=== PATIENT | male | born 1985 | race Two or more races ===

== ENCOUNTER → 2024-08-29 | Outpatient (CLI) | payer MEDICAID ==
--- NOTE | 2024-09-04 16:37 | DVHNC2 ---
Procedure - No obstructive or restrictive ventilatory defect. No significant post-bronchodilator improvement. Noted 60 mL improvement on FVC. Normal total lung capacity (6.27 L, 104%). Normal DLCO (95%), not correlated with patient's hemoglobin. INDIRA BAKER MD Sep 04, 2024 16:37
== END | disposition home or self-care (01) ==
LOC: RT 10:33
PROVIDERS: ATTEND Internal Medicine Pulmonary Disease
DX: R06.00 Dyspnea, unspecified (principal); F17.210 Nicotine dependence, cigarettes, uncomplicated
CPT/HCPCS: 94060; 94727; 94729

== ENCOUNTER 2024-12-19 08:07 | Inpatient (IN) | payer MEDICAID ==
[2024-12-18 10:26] LABS: Urine Bacteria None Seen /hpf (None Seen)
[2024-12-18 10:46] LABS: Basophils # (auto) 0 10 ^3/uL (0-0.2); Basophils % (auto) 0.5 % (0.0-2.0); Eosinophils # (auto) 0 10 ^3/uL (0-0.8); Eosinophils % (auto) 0.6 % (0.0-7.0); Hematocrit 42.4 % (41.0-53.0); Hemoglobin 14.2 g/dL (13.5-17.5); Lymphocytes # (auto) 1.9 10 ^3/uL (0.4-5.4); Lymphocytes % (auto) 25.3 % (10.0-50.0); Mean Corpuscular Hemoglobin 30.6 pg (28.0-32.0); Mean Corpuscular Hgb Conc. 33.5 g/dL (32.0-36.0); Mean Corpuscular Volume 91.5 fL (80.0-100.0); Monocytes # (auto) 0.5 10 ^3/uL (0-1.3); Neutrophils # (auto) 5.1 10 ^3/uL (1.6-8.6); Neutrophils % (auto) 67.6 % (37.0-80.0); Platelet Count (auto) 361 10^3/uL (140-450); Red Blood Cells 4.64 10^6/uL (4.5-5.90); Red Cell Distribution Width 14.7 % (11.8-14.3); White Blood Cell 7.6 10^3/uL (4.4-10.8)
[2024-12-18 10:50] LABS: Urine Blood TRACE /uL (Negative); Urine Clarity Clear (Clear); Urine Color Yellow (Yellow); Urine Protein, UAD TRACE (Negative); Urine Specific Gravity 1.023 (1.001-1.035); Urine Squamous Epithelial Cell FEW /hpf (<5); Urine Urobilinogen Normal (Negative); Urine WBC 1 /HPF (0-3)
[2024-12-18 10:55] LABS: INR 1.05 (0.9-1.15); Partial Thromboplastin Time 28.4 SEC (24.5-34.5); Prothrombin Time 11.1 sec (9.3-11.8)
[2024-12-18 11:53] LABS: Alanine Aminotransferase 34 U/L (7-40); Aspartate Aminotransferase 22 U/L (13-40); BUN/Creatinine Ratio 7.9 (10.0-20.0); Blood Urea Nitrogen 10 mg/dL (9-23); Carbon Dioxide 28 mmol/L (20-31); Glucose 86 mg/dL (74-106); Potassium 3.8 mmol/L (3.5-5.1); Sodium 141 mmol/L (136-145); Total Protein 7.8 g/dL (5.7-8.2)
[2024-12-18 11:59] LABS: Albumin 5.3 g/dL (3.2-4.8); Alkaline Phosphatase 118 U/L (46-116); Calcium 10.5 mg/dL (8.7-10.4)
[2024-12-18 12:05] LABS: Anion Gap 7 (5-15); Chloride 106 mmol/L (98-107)
[2024-12-18 12:13] LABS: Bilirubin, Total 0.9 mg/dL (0.2-1.0)
[~2024-12-19] VITALS: Ht 167.6 cm; Wt 75.7 kg
[~2024-12-19 08:07] MED LIST: CHOL20007 PO; GABA300T4 PO; IBUP200C3 PO; PANT40TA2 PO; PERCOT PO; RIME75TA PO
[2024-12-19] MEDS: ceFAZolin 2 GM/D5W100ml 100 ML IV ONE (08:18)
[2024-12-19] MEDS ORDERED: ONDANSETRON HCL 4 MG/2 ML VIAL ONE (08:33)
[2024-12-19] MEDS ORDERED: GLYCOPYRROLATE 0.2 MG/ML 1ML VIAL ONE (08:33)
[2024-12-19] MEDS ORDERED: KETOROLAC TROMETH 30 MG/ML 1ML VIAL ONE (08:33)
[2024-12-19] MEDS ORDERED: SUGAMMADEX 200mg/2ml Vial (100MG/ML) IV ONE (08:33)
[2024-12-19] MEDS ORDERED: PROPOFOL 10 MG/ML 20 ML IV ONE (08:33)
[2024-12-19] MEDS ORDERED: LIDOCAINE 2% (LOCAL ANESTH.) PF 5ml SDV ONE (08:33)
[2024-12-19] MEDS ORDERED: ROCURONIUM 10MG/ML 10ML VIAL IV ONE (08:33)
[2024-12-19] MEDS ORDERED: fentaNYL CITRATE 100 MCG/2 ML VL ONE (08:34)
[2024-12-19] MEDS: ACETAMINOPHEN IV 1000 MG/100ML (10MG/ML) IV ONE (09:15)
[2024-12-19] MEDS: CELECOXIB 100 MG CAP PO ONE (09:15)
[2024-12-19] MEDS: GABAPENTIN 300 MG CAP PO ONE (09:15)
[2024-12-19] MEDS: CELECOXIB 100 MG CAP ONE (09:25)
[2024-12-19] MEDS: GABAPENTIN 300 MG CAP ONE (09:25)
[2024-12-19] MEDS: ACETAMINOPHEN IV 100 ML IV ONE (09:25)
[2024-12-19] MEDS ORDERED: ESMOLOL HCL 10 ML IV ONE (09:53)
[2024-12-19] MEDS: BUPIVACAINE 0.25% INJ 50ML VIAL ONE (10:16)
[2024-12-19] MEDS: LIDOCAINE W/ EPINEPHRINE 1% 20ML VIAL ONE (10:19)
[2024-12-19] MEDS ORDERED: KETAMINE 50mg/ML 1ml syringe IV ONE (10:33)
[2024-12-19 10:36] VITALS: O2SAT 100
[2024-12-19] MEDS ORDERED: ONDANSETRON HCL 4 MG/2 ML VIAL IV PRN (10:45)
[2024-12-19] MEDS ORDERED: ePHEDrine SULFATE 50 MG/ML AMP IV PRN (10:45)
[2024-12-19] MEDS ORDERED: hydrALAZINE HCL 20 MG/ML VL IV PRN (10:45)
[2024-12-19] MEDS ORDERED: fentaNYL CITRATE 100 MCG/2 ML VL IV PRN (10:45)
[2024-12-19] MEDS ORDERED: FLUMAZENIL 0.1 MG/ML INJ 10ML MDV IV PRN (10:45)
[2024-12-19] MEDS ORDERED: NALOXONE HCL 0.4 MG/ML VIAL IV PRN (10:45)
[2024-12-19] MEDS: HYDROmorphone HCL 2 MG/ML VL/or syr IV PRN (10:51)
--- NOTE | 2024-12-19 10:57 | DVHOP ---
DATE OF SURGERY: 12/19/2024 PREOPERATIVE DIAGNOSES: * Cholelithiasis. * Chronic cholecystitis. SURGEON: Humberto Vera MD [employer]PER[employer]: Homero Suarez NP ANESTHESIA: General endotracheal, [place]. PROCEDURES: * Laparoscopy. * Laparoscopic cholecystectomy. DESCRIPTION OF PROCEDURE: Under general endotracheal anesthesia with the patient's skin prepped and draped, a supraumbilical incision was made and Veress needle inserted into the peritoneal cavity by the hanging drop technique in order to establish pneumoperitoneum to 15 mmHg pressure by insufflation with carbon dioxide. With the abdomen fully distended, the needle was removed and replaced with a 5 mm trocar port through which a 0-degree viewing laparoscope was inserted and laparoscopy was performed. The patient's periumbilical abdominal cavity was full of adhesions which were lysed sharply and bluntly after a 10 mm and 5 mm ports were inserted through the subxiphoid skin in the right anterior axillary line at the level of the umbilicus respectively. With instrumentation introduced, the gallbladder was then visualized and was placed on tension. The cystic duct and cystic artery were identified, were quite tortuous and completely covered with adhesions. The adhesions were lysed and the cystic duct and cystic artery skeletonized and traced into the hepatocystic triangle so as to minimize inadvertent injury to the common bile duct. The cystic duct and cystic artery were then divided between metallic clips and the gallbladder which was almost entirely intrahepatic was resected from its liver bed. The mobilized gallbladder was removed from the peritoneal cavity by placement in a specimen extraction bag which was then retrieved through the subxiphoid 10 mm port site. The right upper quadrant was irrigated, irrigant was aspirated. Due to the intrahepatic nature of the gallbladder, a 10 mm Andrade-Chandler drain was inserted into the abdomen and left underneath the right lobe of the liver and exteriorized through the 5 mm trocar port site and secured with a 2-0 nylon suture. Following further assurance of complete hemostasis and irrigation of the right upper quadrant, the irrigant was aspirated. Hemostasis was found to be complete and the instrumentation withdrawn. Pneumoperitoneum was evacuated. Fascial defect closed using 0 Vicryl. Skin and subcutaneous tissues approximated using Monocryl sutures, Dermabond glue, and Steri-Strips. The patient remained stable throughout the procedure and left the operating room following an accurate needle and sponge count. No family members were in the waiting room and no family members answered the phone number given. MD NI Florez/ERNESTO TID: [id number] RECEIPT: [id number]
[2024-12-19] MEDS: oxyCODONE HCL 5MG TAB PO PRN (11:05)
[2024-12-19] MEDS ORDERED: NITROGLYCERIN 0.4 MG SL TAB SL PRN (11:45)
[2024-12-19] MEDS ORDERED: MORPHINE SULFATE INJ 2 MG/ml SYRG IV PRN (11:45)
[2024-12-19] MEDS: diphenhdrAMINE HCL 50 MG/1 ML VL ONE (11:52)
[2024-12-19] MEDS: diphenhdrAMINE HCL 50 MG/1 ML VL IV ONE (11:53)
--- NOTE | 2024-12-19 13:33 | DVHHP2 ---
Review of Systems Allergies: Coded Allergies: NO KNOWN ALLERGIES (Unverified , 12/18/24) Medications Current Medications Medications Dose Ordered Sig/Giovanni Route Start Time Stop Time Status Last Admin Dose Admin Potassium Chloride/Dextrose/ Sod Cl 1,000 ml @ 120 mls/hr Q8H20M IV 12/19/24 10:45 Cefazolin Sodium/ Dextrose 50 ml @ 50 mls/hr Q8HR IV 12/19/24 14:00 Morphine Sulfate 2 mg Q3HPRN PRN IV 12/19/24 10:45 Acetaminophen/ Codeine Phosphate 1 tab Q4HP PRN PO 12/19/24 10:45 Cefazolin Sodium/ Dextrose 50 ml @ 50 mls/hr Q8HR IV 12/19/24 14:00 UNV Oxycodone HCl 10 mg ONCE PRN PO 12/19/24 10:45 12/19/24 11:05 10 MG Nitroglycerin 0.4 mg Q5MINP PRN SL 12/19/24 11:45 Morphine Sulfate 2 mg Q30M PRN IV 12/19/24 11:45 Exam Vital Signs Vital Signs Date Time Temp Pulse Resp B/P (MAP) Pulse Ox O2 Delivery O2 Flow Rate FiO2 12/19/24 08:16 98.3 69 20 124/67 (86) 100 98.3 Labs/Xrays Labs Test 12/18/24 10:20 Range/Units White Blood Count 7.6 4.4-10.8 10^3/uL Red Blood Count 4.64 4.5-5.90 10^6/uL Hemoglobin 14.2 13.5-17.5 g/dL Hematocrit 42.4 41.0-53.0 % Mean Corpuscular Volume 91.5 80.0-100.0 fL Mean Corpuscular Hemoglobin 30.6 28.0-32.0 pg Mean Corpuscular Hemoglobin Concent 33.5 32.0-36.0 g/dL Red Cell Distribution Width 14.7 H 11.8-14.3 % Platelet Count 361 140-450 10^3/uL Mean Platelet Volume 8.6 6.9-10.8 fL Neutrophils (%) (Auto) 67.6 37.0-80.0 % Lymphocytes (%) (Auto) 25.3 10.0-50.0 % Monocytes (%) (Auto) 6.0 0.0-12.0 % Eosinophils (%) (Auto) 0.6 0.0-7.0 % Basophils (%) (Auto) 0.5 0.0-2.0 % Neutrophils # (Auto) 5.1 1.6-8.6 10 ^3/uL Lymphocytes # (Auto) 1.9 0.4-5.4 10 ^3/uL Monocytes # (Auto) 0.5 0-1.3 10 ^3/uL Eosinophils # (Auto) 0 0-0.8 10 ^3/uL Basophils # (Auto) 0 0-0.2 10 ^3/uL Nucleated Red Blood Cells 0.0 % Prothrombin Time 11.1 9.3-11.8 sec Prothrombin Time INR 1.05 0.9-1.15 Activated Partial Thromboplast Time 28.4 24.5-34.5 SEC Urine Color Yellow Yellow Urine Clarity Clear Clear Urine pH 6.0 5.0-9.0 Urine Specific [place] 1.023 1.001-1.035 Urine Protein Trace H Negative Urine Ketones 1+ H Negative Urine Blood Trace H Negative /uL Urine Nitrite Negative Negative Urine Bilirubin Negative Negative Urine Urobilinogen Normal Negative mg/dL Urine Leukocyte Esterase Negative Negative /uL Urine RBC 1 0 - 3 /hpf Urine Microscopic WBC 1 0-3 /HPF Urine Squamous Epithelial Cells Few <5 /hpf Urine Bacteria None seen None Seen /hpf Urine Glucose Normal Normal mg/dL Sodium Level 141 136-145 mmol/L Potassium Level 3.8 3.5-5.1 mmol/L Chloride Level 106 98-107 mmol/L Carbon Dioxide Level 28 20-31 mmol/L Anion Gap 7 5-15 Blood Urea Nitrogen 10 9-23 mg/dL Creatinine 1.26 0.700-1.30 mg/dL Glomerular Filtration Rate Calc 74 >90 mL/min BUN/Creatinine Ratio 7.9 L 10.0-20.0 Serum Glucose 86 74-106 mg/dL Calcium Level 10.5 H 8.7-10.4 mg/dL Total Bilirubin 0.9 0.2-1.0 mg/dL Aspartate Amino Transferase (AST) 22 13-40 U/L Alanine Aminotransferase (ALT) 34 7-40 U/L Alkaline Phosphatase 118 H 46-116 U/L Total Protein 7.8 5.7-8.2 g/dL Albumin 5.3 H 3.2-4.8 g/dL Assessment/Plan Assessment/Plan SEE DICTATED NOTE Plan discussed with: Patient Date of Service: Dec 19, 2024 Billing Provider: VALERIA ACEVEDO MD Common Visit Codes: [id number] INP/OBS CARE (HIGH) VALERIA ACEVEDO MD Dec 19, 2024 13:33
[2024-12-19] MEDS: D5W/SOD CHL 0.45%/KCL 20MEQ 1,000 ML IV SCH (13:43)
[2024-12-19] MEDS: HYDROmorphone HCL 2 MG/ML VL/or syr ONE (13:43)
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
[2024-12-19 13:54] VITALS: PULSE 84; RESP 16; O2SAT 96
[2024-12-19] MEDS ORDERED: ceFAZolin 2 GM/D5W50ml 50 ML IV SCH (14:00)
[2024-12-19 14:17] VITALS: BP 135/85; PULSE 69; RESP 16; TEMP 98.2; O2SAT 100
[2024-12-19] MEDS: GABAPENTIN 100 MG CAP PO SCH (15:55)
[2024-12-19] MEDS: ACETAMINOPHEN/CODEINE#3 (300/30mg) TAB PO PRN (16:04)
[2024-12-19] MEDS: ceFAZolin 2 GM/D5W50ml 50 ML IV SCH (16:48)
[2024-12-19 17:37] VITALS: BP 131/70; PULSE 70; RESP 20; TEMP 98.3; O2SAT 98
[2024-12-19 20:00] VITALS: PULSE 70; RESP 19; O2SAT 100
[2024-12-19] MEDS: MORPHINE SULFATE INJ 2 MG/ml SYRG IV PRN (20:29)
[2024-12-19 21:00] VITALS: BP 125/75; PULSE 68; RESP 18; TEMP 98.2; O2SAT 96
[2024-12-20 01:00] VITALS: BP 124/90; PULSE 70; RESP 19; TEMP 98.3; O2SAT 100
[2024-12-20 05:00] VITALS: BP 145/90; PULSE 62; RESP 19; TEMP 98.3; O2SAT 99
[2024-12-20 07:20] LABS: Basophils # (auto) 0 10 ^3/uL (0-0.2); Basophils % (auto) 0.3 % (0.0-2.0); Eosinophils # (auto) 0.1 10 ^3/uL (0-0.8); Eosinophils % (auto) 1.3 % (0.0-7.0); Hemoglobin 12.2 g/dL (13.5-17.5); Lymphocytes # (auto) 1.8 10 ^3/uL (0.4-5.4); Lymphocytes % (auto) 33.1 % (10.0-50.0); Mean Corpuscular Hemoglobin 30.8 pg (28.0-32.0); Mean Corpuscular Hgb Conc. 33.8 g/dL (32.0-36.0); Mean Corpuscular Volume 90.9 fL (80.0-100.0); Monocytes # (auto) 0.4 10 ^3/uL (0-1.3); Monocytes % (auto) 7.4 % (0.0-12.0); Neutrophils # (auto) 3.2 10 ^3/uL (1.6-8.6); Neutrophils % (auto) 57.9 % (37.0-80.0); Nucleated Red Blood Cells % 0.1 %; Platelet Count (auto) 288 10^3/uL (140-450); Red Blood Cells 3.96 10^6/uL (4.5-5.90); Red Cell Distribution Width 14.5 % (11.8-14.3); White Blood Cell 5.6 10^3/uL (4.4-10.8)
[2024-12-20 07:39] LABS: Alkaline Phosphatase 101 U/L (46-116); Anion Gap 6 (5-15); BUN/Creatinine Ratio 3.9 (10.0-20.0); Calcium 9.6 mg/dL (8.7-10.4); Carbon Dioxide 29 mmol/L (20-31); Glucose 103 mg/dL (74-106); Potassium 3.9 mmol/L (3.5-5.1); Sodium 142 mmol/L (136-145)
[2024-12-20 07:40] LABS: Albumin 4.2 g/dL (3.2-4.8); Bilirubin, Total 1.1 mg/dL (0.2-1.0); Total Protein 6.3 g/dL (5.7-8.2)
[2024-12-20 07:42] LABS: Alanine Aminotransferase 114 U/L (7-40); Aspartate Aminotransferase 108 U/L (13-40); Blood Urea Nitrogen 5 mg/dL (9-23); Chloride 107 mmol/L (98-107)
[2024-12-20 08:00] VITALS: PULSE 62; RESP 18; O2SAT 95
[2024-12-20 09:00] VITALS: BP 138/72; PULSE 57; RESP 18; TEMP 97.9; O2SAT 95
--- NOTE | 2024-12-20 09:32 | DVHPN2 ---
Progress Note Date Seen: Dec 20, 2024 Medical Necessity Reason Pt with a Central, PICC or Fol: No Objective vital signs Vital Sign Date Time Temp Pulse Resp B/P (MAP) Pulse Ox O2 Delivery O2 Flow Rate FiO2 12/20/24 08:41 62 18 145/90 12/20/24 05:00 98.3 99 98.3 12/19/24 20:00 Room Air* 0 21 Total Intake and Output 12/19/24 12/19/24 12/20/24 15:00 23:00 07:00 Intake Total 100 ml 240 ml 1460 ml Output Total 40 ml Balance 60 ml 240 ml 1460 ml medications Current Medications Medications Dose Ordered Sig/Giovanni Route Start Time Stop Time Status Last Admin Dose Admin Potassium Chloride/Dextrose/ Sod Cl 1,000 ml @ 120 mls/hr Q8H20M IV 12/19/24 10:45 12/20/24 03:11 120 MLS/HR Cefazolin Sodium/ Dextrose 50 ml @ 50 mls/hr Q8HR IV 12/19/24 14:00 12/20/24 06:23 50 MLS/HR Morphine Sulfate 2 mg Q3HPRN PRN IV 12/19/24 10:45 12/20/24 08:41 2 MG Acetaminophen/ Codeine Phosphate 1 tab Q4HP PRN PO 12/19/24 10:45 12/19/24 16:04 1 TAB Cefazolin Sodium/ Dextrose 50 ml @ 50 mls/hr Q8HR IV 12/19/24 14:00 UNV Oxycodone HCl 10 mg ONCE PRN PO 12/19/24 10:45 12/19/24 11:05 10 MG Nitroglycerin 0.4 mg Q5MINP PRN SL 12/19/24 11:45 Morphine Sulfate 2 mg Q30M PRN IV 12/19/24 11:45 Gabapentin 100 mg TID PO 12/19/24 14:00 12/20/24 06:23 100 MG laboratory and microbiology Laboratory Tests 12/20/24 06:32 Test 12/20/24 06:32 Range/Units Serum Glucose 103 74-106 mg/dL Problem List/Assessment/Plan Problem List/Assessment/Plan 12/20/24 FEELS WELL, WANTSA TO EAT AND GO HOME, WOUNDS CLEAN AND WELL APPROXIMATED, BONIFACIO DRAINAGE NON BILIOUS, ABDOMEN APPROPRIATELY TENDER, NON DISTENDED. HE IS CLEARED FOR DISCHARGE Plan discussed with: Patient LANEY SENIOR MD Dec 20, 2024 09:32
--- NOTE | 2024-12-20 09:51 | DVHDS2 ---
Discharge Summary Date of Admission Dec 19, 2024 at 11:41 Date of Discharge: Dec 20, 2024 Labs/Diagnostic Data: Laboratory Results Test 12/20/24 06:32 12/18/24 10:20 White Blood Count 5.6 10^3/uL (4.4-10.8) Red Blood Count 3.96 10^6/uL (4.5-5.90) Hemoglobin 12.2 g/dL (13.5-17.5) Hematocrit 36.0 % (41.0-53.0) Mean Corpuscular Volume 90.9 fL (80.0-100.0) Mean Corpuscular Hemoglobin 30.8 pg (28.0-32.0) Mean Corpuscular Hemoglobin Concent 33.8 g/dL (32.0-36.0) Red Cell Distribution Width 14.5 % (11.8-14.3) Platelet Count 288 10^3/uL (140-450) Mean Platelet Volume 8.6 fL (6.9-10.8) Neutrophils (%) (Auto) 57.9 % (37.0-80.0) Lymphocytes (%) (Auto) 33.1 % (10.0-50.0) Monocytes (%) (Auto) 7.4 % (0.0-12.0) Eosinophils (%) (Auto) 1.3 % (0.0-7.0) Basophils (%) (Auto) 0.3 % (0.0-2.0) Neutrophils # (Auto) 3.2 10 ^3/uL (1.6-8.6) Lymphocytes # (Auto) 1.8 10 ^3/uL (0.4-5.4) Monocytes # (Auto) 0.4 10 ^3/uL (0-1.3) Eosinophils # (Auto) 0.1 10 ^3/uL (0-0.8) Basophils # (Auto) 0 10 ^3/uL (0-0.2) Nucleated Red Blood Cells 0.1 % Sodium Level 142 mmol/L (136-145) Potassium Level 3.9 mmol/L (3.5-5.1) Chloride Level 107 mmol/L (98-107) Carbon Dioxide Level 29 mmol/L (20-31) Anion Gap 6 (5-15) Blood Urea Nitrogen 5 mg/dL (9-23) Creatinine 1.29 mg/dL (0.700-1.30) Glomerular Filtration Rate Calc 72 mL/min (>90) BUN/Creatinine Ratio 3.9 (10.0-20.0) Serum Glucose 103 mg/dL (74-106) Calcium Level 9.6 mg/dL (8.7-10.4) Total Bilirubin 1.1 mg/dL (0.2-1.0) Aspartate Amino Transferase (AST) 108 U/L (13-40) Alanine Aminotransferase (ALT) 114 U/L (7-40) Alkaline Phosphatase 101 U/L (46-116) Total Protein 6.3 g/dL (5.7-8.2) Albumin 4.2 g/dL (3.2-4.8) Prothrombin Time 11.1 sec (9.3-11.8) Prothrombin Time INR 1.05 (0.9-1.15) Activated Partial Thromboplast Time 28.4 SEC (24.5-34.5) Urine Color Yellow (Yellow) Urine Clarity Clear (Clear) Urine pH 6.0 (5.0-9.0) Urine Specific [place] 1.023 (1.001-1.035) Urine Protein Trace (Negative) Urine Ketones 1+ (Negative) Urine Blood Trace /uL (Negative) Urine Nitrite Negative (Negative) Urine Bilirubin Negative (Negative) Urine Urobilinogen Normal mg/dL (Negative) Urine Leukocyte Esterase Negative /uL (Negative) Urine RBC 1 /hpf (0 - 3) Urine Microscopic WBC 1 /HPF (0-3) Urine Squamous Epithelial Cells Few /hpf (<5) Urine Bacteria None seen /hpf (None Seen) Urine Glucose Normal mg/dL (Normal) Other Laboratory Tests 12/20/24 06:32 Brief Hx & Hospital Course: SEE DICTATED NOTE Condition at Discharge: Good Final Diagnosis/Problems List LAP RANDOLPH Discharge Disposition: Home Discharge Instruct/Medications Diet: Cardiac 2g Na,low cholest Activity: No Restrictions, As Tolerated Follow Up/Referral: SCHEDULE APPT WITH DR SENIOR IN 1 WK Medications: RESUME HOME MEDS SCRIPT TO PHARMACY Discharge Statement: "Patient was advised to return to the ER or call 911 if any headaches, dizziness, shortness of breath, chest pain, abdominal pain, bleeding, fevers, or worsening of medical condition. Patient was counseled about treatment plan, medications, possible side effects, patientverbalized understanding. All questions were answered to the best of my ability. This discharge took greater then 30 minutes in planning, reviewing documentation, counseling the patient, and discussing with other team members." ASSESSMENT ASSESSMENT Assessment ELISABETH DICKSON Date of Service: Dec 20, 2024 Billing Provider: VALERIA ACEVEDO MD Common Visit Codes: 18228-EKP/OBS DISCH DAY >30min VALERIA ACEVEDO MD Dec 20, 2024 09:51
[2024-12-20] MEDS ORDERED: DOCU-94 PO (09:52)
[2024-12-20] MEDS ORDERED: CEPH500C PO (09:52)
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
[2024-12-20 11:20] VITALS: BP 138/72; PULSE 62; RESP 18; TEMP 97.9; O2SAT 95
== END 2024-12-20 11:45 | disposition home or self-care (01) | DRG 263 ==
LOC: SUR 08:07 → OVERFLOW 11:41 → CENTRAL 14:03
PROVIDERS: ADMIT Surgery; ATTEND Internal Medicine
PROC: 0FT44ZZ Resection of Gallbladder, Percutaneous Endoscopic Approach (ICD-10-PCS; principal; 2024-12-19 09:34)
DX: K80.10 Calculus of gallbladder with chronic cholecystitis without obstruction (principal); R71.0 Precipitous drop in hematocrit; G89.29 Other chronic pain; K59.00 Constipation, unspecified; K66.0 Peritoneal adhesions (postprocedural) (postinfection); R74.01 Elevation of levels of liver transaminase levels
CPT/HCPCS: 36415; 80053; 81001; 85025; 85610; 85730; G0378; J0131; J1885; J2003; J2405; J2704; J3490

== ENCOUNTER → 2025-07-03 | Day surgery (SDC) | payer MEDICAID ==
[2025-06-28 10:45] LABS: Hematocrit 43.5 % (41.0-53.0); Hemoglobin 15.1 g/dL (13.5-17.5); Mean Corpuscular Hemoglobin 31.3 pg (28.0-32.0); Mean Corpuscular Volume 90.3 fL (80.0-100.0); Nucleated Red Blood Cells % 0.1 %
[2025-06-28 10:46] LABS: Urine Protein, UAD Negative (Negative)
[2025-06-28 11:00] LABS: INR 1.03 (0.9-1.15); Partial Thromboplastin Time 26.8 SEC (24.5-34.5); Prothrombin Time 10.9 sec (9.3-11.8)
[2025-06-28 11:10] LABS: Alanine Aminotransferase 26 U/L (7-40); Alkaline Phosphatase 115 U/L (46-116); Anion Gap 6 (5-15); BUN/Creatinine Ratio 10.1 (10.0-20.0); Blood Urea Nitrogen 13 mg/dL (9-23); Calcium 9.9 mg/dL (8.7-10.4); Carbon Dioxide 28 mmol/L (20-31); Glucose 97 mg/dL (74-106); Potassium 4.3 mmol/L (3.5-5.1); Sodium 142 mmol/L (136-145); Total Protein 7.6 g/dL (5.7-8.2)
[2025-06-28 11:11] LABS: Albumin 5.1 g/dL (3.2-4.8); Bilirubin, Total 0.5 mg/dL (0.2-1.0); Chloride 108 mmol/L (98-107)
[~2025-07-03] VITALS: Ht 198.1 cm; Wt 74.8 kg
[~2025-07-03] MED LIST changes: +ATOG10TA PO; +GLYCOPYRROLATE 0.2 MG/ML 1ML VIAL ONE; +HYDROmorphone HCL 2 MG/ML VL/or syr IV PRN; +KETAMINE 50mg/ML 1ml syringe ONE; +KETOROLAC TROMETH 30 MG/ML 1ML VIAL ONE; +LIDOCAINE 1% INJ PF 5ML AMP ONE; +MELO7.5T7 PO; +MIDAZOLAM HCL 2MG/2ML 2ml VIAL (1mg/ml) ONE; +ONDANSETRON HCL 4 MG/2 ML VIAL ONE; -PANT40TA2 PO; +PROPOFOL 10 MG/ML 20 ML IV ONE
[2025-07-03] MEDS: ceFAZolin 2 GM/D5W50ml 50 ML IV ONE (12:24)
--- NOTE | 2025-07-03 12:29 | DVHOP2 ---
Operative Report - 2 Report Details Date: 07/03/25 Preop Diagnosis: 1. Left foot tailors bunion 2. Left foot metatarsalgia 3. Left foot pain Postop Diagnosis: See anesthesia Surgeon: Quique David MD Anesthesiologist: See anesthesia Anesthesia: Mac Implant: 0.062 K wire Consent: The patient was informed of the risks and benefits of the procedure. These include but are not limited to complications of anesthesia, postoperative infection, incomplete relief of symptoms, recurrence of symptoms, damage to blood vessels, nerves and tendons, deep venous thrombosis, pulmonary embolism and possible need for repeat surgery in the future. Complications: None Estimated Blood Loss: Minimal Fluids: See anesthesia Findings: Consistent with the diagnosis Indications for Surgery: Worsening left foot pain Name of Procedure Performed 1. Left foot tailors bunionectomy (35029) 2. Left foot 5th metatarsal capsulotomy (45146) Procedure Details Procedure Details: PRE-PROCEDURE INFORMATION: In the pre-op holding area, the extremity to be op erated on was clearly marked and the patient verified correct laterality of the marking. The patient was transferred to the OR table and placed in a supine position. A timeout was performed in which identification of the correct patient, procedure, location, and materials was done. The left foot and leg were prepped and draped in normal sterile fashion. DESCRIPTION OF PROCEDURE: Attention was directed to the left lateral fifth metatarsal head where a stab incision was made. This incision was deepened thr ough blunt and sharp dissection. Care was taken to avoid damage to neurovascular structures throughout dissection. The incision was carried to the level of the fifth metatarsal head where on intraoperative fluoroscopy as well as preoperative x-rays, it was noted there was no significantly increased lateral deviation angle of the fifth metatarsal, but the lateral aspect of the fifth metatarsal head appeared to be prominent. This indicated that the patient would benefit from an ostectomy of the metatarsal head without osteotomy. Using an MIS bur, an osteotomy was made across the neck of the metatarsal head. Using through the same incision, a capsulotomy was performed at the MPJ. Using a 0.62 K wire, the wire was then placed down the shaft of the 5th metatarsal holding the head in the appropriate position. It was noted on intraoperative fluoroscopy, there was significant reduction of deformity All surgical wounds were irrigated copiously with saline and closed in layers with the aforementioned suture material. A dry sterile dressing was placed on the surgical extremity. The patient was placed in a postop shoe POSTOPERATIVE INFORMATION: The patient tolerated the above noted procedure and anesthesia well and was transferred to the PACU with vital signs stable, and vascular status intact with capillary refill intact to all digits. Postoperative instructions reviewed in detail with the patient with written instructions provided. Patient will return to clinic in approximately 10-14 days for first postoperative visit. Patient has the number of the clinic and was instructed to call prior to that time should any problems, questions, or concerns arise. Condition Good Disposition Home Visit Coding Podiatry Date of Service if different f: Jul 03, 2025 Billing Provider: QUIQUE DAVID DPM Podiatry Common Visit Codes: PROCEDURE ONLY QUIQUE DAVID DPM Jul 03, 2025 12:29
[2025-07-03] MEDS: BUPIVACAINE HCL 50 ML ONE (12:42)
[2025-07-03 12:48] VITALS: PULSE 64; RESP 13; TEMP 98; O2SAT 100
[2025-07-03 13:05] VITALS: PULSE 71; O2SAT 100
[2025-07-03 13:15] VITALS: BP 149/93; PULSE 62; RESP 13; O2SAT 100
== END | disposition home or self-care (01) ==
LOC: SUR 09:39
PROVIDERS: ATTEND Podiatrist
DX: M21.622 Bunionette of left foot (principal); M77.42 Metatarsalgia, left foot; F17.210 Nicotine dependence, cigarettes, uncomplicated; J44.9 Chronic obstructive pulmonary disease, unspecified; Z90.49 Acquired absence of other specified parts of digestive tract; Z88.8 Allergy status to other drugs, medicaments and biological substances; Z98.890 Other specified postprocedural states
CPT/HCPCS: 28308; 36415; 80053; 81001; 85025; 85610; 85730; J0690; J1885; J2250; J2405; J2704; J3490; J1100